=== PATIENT | female | born 1960 | race Caucasian/White ===

== ENCOUNTER 2019-03-09 14:15 | Outpatient (CLI) | payer OTHER ==
--- NOTE | 2019-03-09 14:36 | RAD ---
EXAM: Thoracic spine 3 views: HISTORY: Spinal stenosis, disability, thoracic back pain COMPARISON: None FINDINGS: Very severe elongated anterior diffuse disc osteophytosis from C3 through C7. No evidence for acute fracture or dislocation involving the visualized spine. Severe disc osteophytosis throughout the thoracic spine. No evidence for malalignment. No evidence for a bone lesion. IMPRESSION: Severe spondylosis as above. No significant acute process.
== END 2019-03-09 14:16 | disposition home or self-care (01) ==
LOC: NAV RAD 14:15
PROVIDERS: ATTEND Family Medicine
DX: M48.04 Spinal stenosis, thoracic region (principal); M47.814 Spondylosis without myelopathy or radiculopathy, thoracic region
CPT/HCPCS: 72072